=== PATIENT | female | born 1965 | race Caucasian/White ===

== ENCOUNTER 2023-04-12 14:04 | Observation (INO) | payer MEDICAID, SELFPAY ==
[2023-04-12] VITALS (9 sets, daily range): BP systolic 162–196; BP diastolic 73–122; PULSE 70–98; RESP 16–22; TEMP 36.8; O2SAT 91–96; BMI 27.4
--- NOTE | 2023-04-12 14:21 | W.ED.NEUROSD ---
HPI - Neuro Symptoms/Deficit General: Chief Complaint: Neuro Symptoms/Deficit Stated Complaint: stroke like syntoms Time Seen by Provider: 04/12/23 14:21 History of Present Illness: 57-year-old lady with history of tobaccoism presenting to the emergency department for strokelike symptoms. Notes right far visual field cut starting last night associated with intermittent headaches. She also notes sometimes word finding difficulty and mild gait abnormality. She has had abnormal feeling in the right side of her face. Denies similar episodes in the past. Has not seen a doctor for probably 20 years. No other specific changes in health, exacerbating, or alleviating factors identified. Onset (ago): hour(s) Severity: moderate Associated symptoms: Reports other Review of Systems General: Reports: 10 or more systems reviewed and unremarkable except in HPI and below PFSH ED PFSH: Medical History Lacunar infarction Family History Other COPD (chronic obstructive pulmonary disease) Cancer Diabetes Stroke Social History Smoking and tobacco status: former smoker Physical Exam Const: COMMON NORMALS: alert GENERAL APPEARANCE: cooperative and well developed HENMT: COMMON NORMALS: normocephalic and atraumatic HEAD & SCALP: normocephalic and atraumatic Eye: COMMON NORMALS: conjunctivae normal CONJUNCTIVA: Yes conjunctivae normal SCLERA: sclerae normal Neck/C-Spine: COMMON NORMALS: supple GENERAL: Yes trachea midline Resp: COMMON NORMALS: normal respiratory effort EFFORT & INSPECTION: Yes able to speak in complete sentences Cardio: COMMON NORMALS: regular rate and regular rhythm RATE: regular rate RHYTHM: regular rhythm GI: COMMON NORMALS: Soft to palpation PALPATION: Yes Soft to palpation and No Tenderness to palpation present (GI) PERCUSSION: normal to percussion Extremity: GENERAL: Yes normal exam except as noted and No edema Neuro: COMMON NORMALS: moves all extremities SENSORIUM/ORIENTATION: Yes alert and No Orientation impaired OTHER: Unsteady gait, right I visual disturbance with possible mild visual field cut, generalized weakness with mildly worse on the right. Subjective word finding difficulty. Psych: COMMON NORMALS: mental status grossly normal and Normal thought process present THOUGHT PROCESS: Normal thought process present Course Vital Signs: Vital signs: Vital Signs Temperature 98.4 F 04/14/23 11:43 Pulse Rate 96 04/14/23 11:43 Respiratory Rate 18 04/14/23 11:43 Blood Pressure 177/79 04/14/23 11:43 Pulse Oximetry 96 04/14/23 08:16 Oxygen Delivery Me thod Room Air 04/14/23 08:16 MDM - Neuro Symptoms/Deficit Medical Decision Making 57-year-old lady presenting with concern for strokelike symptoms. NIHSS 3. Patient is not a candidate for tPA given duration of symptoms. EKG notable for sinus rhythm with left axis deviation, no STEMI. No significant hematologic or metabolic abnormalities to explain symptoms. No UTI. CT head with no evidence of intracranial hemorrhage. CTA with no large vessel occlusion. Treated during ED course with IV fluids and medication with hypertension above typical acceptable range for permissive hypertension with suspected ischemic stroke. Most likely etiology of symptoms is stroke. The results of ED evaluation were discussed with the patient including plan for admission due to requirement for level of care not available if discharged to prevent significant worsening/deterioration. Patient agreeable with plan. Discussed with hospitalist service who was agreeable to admit patient. Medical Records I reviewed the patient's medical records. Lab Data I reviewed the patient's lab results. 04/12/23 14:40 04/12/23 15:[address] 04/12/23 14:22 IMPRESSION: 1. No acute intracranial hemorrhage or edema. 2. There are a few scattered bilateral dennis-white matter junction areas of decreased attenuation. Recommend nonurgent MRI evaluation. MRI brain with and without contrast recommended. Head/Neck CTA 04/12/23 14:58 IMPRESSION: 1. No significant cervical carotid artery stenosis. 2. Mild atherosclerotic plaque within the intracranial carotid arteries. 3. No cerebral artery occlusion and no aneurysm. 4. Unremarkable [place]. Head MRI 04/13/23 04:29 IMPRESSION: 1. Small area of acute ischemia LEFT lateral thalamus extending into the LEFT mesial temporal lobe. No mass effect or midline shift. 2. No hemosiderin on susceptibly weighted images. 3. Mild small vessel changes with mild parenchymal volume loss. 4. Small amount of fluid in the sphenoid sinus. 5. Tiny chronic lacunar infarcts RIGHT cerebellum and adjacent to the LEFT lateral ventricle. 6. Chronic cortical infarct in the LEFT occipital lobe with encephalomalacia and gliosis. Notified Ramu Levin MD at 04/13/2023 8:53 AM. Laboratory Results WBC 9.7 10^3/uL (4.0-10.0) 04/12/23 14:40 RBC 4.38 10^6/uL (4.1-5.3) 04/12/23 14:40 Hgb 13.5 g/dL (11.5-15.3) 04/12/23 14:40 Hct 41.8 % (37.0-47.0) 04/12/23 14:40 MCV 95.4 fl (81-99) 04/12/23 14:40 MCH 30.8 pg (28.0-34.0) 04/12/23 14:40 MCHC 32.3 g/dL (30.0-36.0) 04/12/23 14:40 RDW 13.1 % (12.1-15.1) 04/12/23 14:40 Plt Count 217 10^3/cmm (130-400) 04/12/23 14:40 MPV 11.5 fL (7.4-10.4) H 04/12/23 14:40 Neut % (Auto) 62.0 % 04/12/23 14:40 Lymph % (Auto) 27.9 % 04/12/23 14:40 [place] % (Auto) 7.4 % 04/12/23 14:40 Eos % (Auto) 2.0 % 04/12/23 14:40 Baso % (Auto) 0.4 % 04/12/23 14:40 Neut # (Auto) 6.01 10^3/uL (1.8-7.7) 04/12/23 14:40 Lymph # (Auto) 2.7 10^3/uL (0.8-4.8) 04/12/23 14:40 [place] # (Auto) 0.7 10^3/uL (0.2-0.9) 04/12/23 14:40 Eos # (Auto) 0.2 10^3/uL (0.0-0.8) 04/12/23 14:40 Baso # (Auto) 0.0 10^3/uL (0.0-0.1) 04/12/23 14:40 Nucleated RBC % (auto) 0 % 04/12/23 14:40 Nucleated RBCs # 0.0 /100WBC 04/12/23 14:40 PT 13.90 SECONDS (12.1-14.9) 04/12/23 14:40 INR 1.04 (0.8-1.2) 04/12/23 14:40 APTT 32.5 SECONDS (23.9-36.7) 04/12/23 14:40 Sodium 140 mmol/L (136-145) 04/12/23 15:23 Potassium 4.5 mmol/L (3.5-5.1) 04/12/23 15:23 Chloride 105 mmol/L (98-107) 04/12/23 15:23 Carbon Dioxide 26 mmol/L (22-29) 04/12/23 15:23 Anion Gap 13.5 (5-19) 04/12/23 15:23 BUN 9 mg/dL (6-20) 04/12/23 15:23 Creatinine 0.7 mg/dL (0.5-0.9) 04/12/23 15:23 GFR Calculation 85.6 mL/min (90-130) L 04/12/23 15:23 Glucose 91 mg/dL (65-115) 04/12/23 15:23 POC Glucose 91 mg/dL (70-110) 04/12/23 14:31 Calculated Osmolality 288 mOsm/kg (285-295) 04/12/23 15:23 Calcium 8.9 mg/dL (8.5-10.5) 04/12/23 15:23 Total Bilirubin 0.2 mg/dL (0.15-1.2) 04/12/23 15:23 AST 13 U/L (0-32) 04/12/23 15:23 ALT 12 U/L (0-33) 04/12/23 15:23 Alkaline Phosphatase 88 U/L (35-105) 04/12/23 15:23 Total Protein 6.4 g/dL (6.6-8.7) L 04/12/23 15:23 Albumin 4.1 g/dL (3.5-5.2) 04/12/23 15:23 Globulin 2.3 g/dL (1.3-4.6) 04/12/23 15:23 Urine Color Yellow (Yellow) 04/12/23 17:26 Urine Appearance Clear (CLEAR) 04/12/23 17:26 Urine pH 7 (5-7) 04/12/23 17:26 Ur Specific [place] 1.010 (1.005-1.030) 04/12/23 17:26 Urine Protein Neg (Negative) 04/12/23 17:26 Urine Glucose (UA) Norm (Normal) 04/12/23 17:26 Urine Ketones Negative (Negative) 04/12/23 17:26 Urine Blood Neg (Negative) 04/12/23 17:26 Urine Nitrate Negative (Negative) 04/12/23 17:26 Urine Bilirubin Neg (Negative) 04/12/23 17:26 Urine Urobilinogen Norm mg/dL (Negative) 04/12/23 17:26 Ur Leukocyte Esterase Negative (Negative) 04/12/23 17:26 Urine Opiates Screen Negative ng/mL (Negative) 04/12/23 17:26 Ur Barbiturates Screen Negative ng/mL (Negative) 04/12/23 17:26 Ur Phencyclidine Scrn Negative ng/mL (Negative) 04/12/23 17:26 Ur Amphetamines Screen Negative ng/mL (Negative) 04/12/23 17:26 U Benzodiazepines Scrn Negative ng/mL (Negative) 04/12/23 17:26 Urine Cocaine Screen Negative ng/mL (Negative) 04/12/23 17:26 U Marijuana (THC) Screen Negative ng/mL (Negative) 04/12/23 17:26 Discharge Plan Discharge Patient Disposition: Placed in Observation Admit Provider: Richard Phipps Clinical Impression: Cerebrovascular accident Discharge Diet: Advance as tolerated and Cardiac Discharge Activity: Resume usual activity Coding Level of Care Code ED Electronic Repair Troubleshooter for López Kelley
--- NOTE | 2023-04-12 14:22 | ECG_ITS ---
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 Measurements Intervals [place] Rate: 79 P: 54 NH: 175 QRS: -28 QRSD: 91 T: 68 QT: 398 QTc: 458 Interpretive Statements SINUS RHYTHM BORDERLINE LEFT AXIS DEVIATION [QRS AXIS < -20] VOLTAGE CRITERIA FOR LVH [MEETS CRITERIA IN ONE OF: R(aVL), S(V1), R(V5), R(V5/V6)+S(V1)] NONSPECIFIC T-WAVE ABNORMALITY No previous ECG available for comparison Electronically Signed On 04-12-2023 23:24:31 CDT by Arely Coats M.D. [id number]
--- NOTE | 2023-04-12 14:22 | CT_ITS ---
WS: [id number] CT HEAD NONCONTRAST HISTORY: Symptoms of acute stroke TECHNIQUE: Contiguous axial imaging performed through the brain in 2.5 mm imaging. Bone and soft tiss ue windows. Sagittal and coronal reformats reviewed. All CT scans at [facility] use at least one of these dose optimization techniques: automated exposure control; mA and/or kV adjustment per pa tient size (includes targeted exams where dose is matched to clinical indication); or iterative recon struction. DLP: 1127.18 mGy-cm. COMPARISON: None available. No acute intracranial hemorrhage, midline shift or mass effect. No significant atrophy. There are a few areas of decreased attenuation scattered throughout the brain which are probably related to small vessel ischemic disease. These areas are at the dennis-white matte r junction and noted bilaterally. Ventricles: Normal size with no hydrocephalus. Mild ectopia of the cerebellar tonsils. Paranasal sinuses: Mild mucoperiosteal disease in the sphenoid sinuses. No air-fluid levels. Mastoid air cells: Well pneumatized. Calvarium and scalp: Skull is intact with no soft tissue edema or swelling. CT/CT head thrombolytic [id number] IMPRESSION: 1. No acute intracranial hemorrhage or edema. 2. There are a few scattered bilateral dennis-white matter junction areas of dec reased attenuation. Recommend nonurgent MRI evaluation. MRI brain with and with out contrast recommended.
[2023-04-12 14:47] LABS: Basophils % 0.4 %; Eosinophils # 0.2 10^3/uL (0.0-0.8); Hematocrit 41.8 % (37.0-47.0); Hemoglobin 13.5 g/dL (11.5-15.3); Lymphocytes # 2.7 10^3/uL (0.8-4.8); Lymphocytes % 27.9 %; Mean Corpuscular HGB Conc 32.3 g/dL (30.0-36.0); Mean Corpuscular Hemoglobin 30.8 pg (28.0-34.0); Mean Corpuscular Volume 95.4 fl (81-99); Mean Platelet Volume 11.5 fL (7.4-10.4); Monocytes # 0.7 10^3/uL (0.2-0.9); Monocytes % 7.4 %; Neutrophils # 6.01 10^3/uL (1.8-7.7); Nucleated Red Blood Cells % 0 %; Platelet Count 217 10^3/cmm (130-400); Red Blood Count 4.38 10^6/uL (4.1-5.3); Red Cell Distribution Width 13.1 % (12.1-15.1); White Blood Count 9.7 10^3/uL (4.0-10.0)
--- NOTE | 2023-04-12 14:58 | CT_ITS ---
WS: [id number] CT ANGIOGRAM CEREBRAL AND CAROTID ARTERIES HISTORY: visual field cut, r facial sensory changes TECHNIQUE: CT angiogram is performed of the carotid and cerebral arteries. During arterial injection imaging is obtained from the skull vertex to the aortic arch in 1.25 mm imaging. Coronal and sagittal reformats are submitted. Additional multi planar reformats of the carotid and cerebral arteries are submitted, MIP imaging also reviewed. NASCET criteria utilized. [facility] at least one of these dose optimization techniques: automated exposure control; mA and/or kV adjust ment per patient size (includes targeted exams where dose is matched to clinical indication); or iter ative reconstruction. CONTRAST: Omnipaque 350; 100 mL IV. DLP: 421.72 mGy.cm COMPARISON: Noncontrast CT head earlier the same day. Carotid Angiogram: Right carotid: Common carotid artery: Arises normally from the innominate artery. No significant plaque or stenosis. Internal carotid artery: No plaque or stenosis. External carotid artery: Patent. Left carotid: Common carotid artery: Arises normally from the aorta. No significant plaque or stenosis. Internal carotid artery: Small amount of plaque and intimal thickening at the bifurcation. External carotid artery: Patent. Right vertebral artery: Small caliber but patent. Left vertebral artery: Arises from the arch. Patent. Subclavian arteries: Tortuous with atherosclerotic plaque. No stenosis. Upper thorax: Normal. Thyroid gland: Normal. Osseous structures: Mild straightening of the normal lumbar lordosis. CEREBRAL ANGIOGRAM: Intracranial vertebral arteries: Normal with no significant atherosclerosis. Basilar artery: No significant stenosis or occlusion. No aneurysm. Intracranial Internal carotid arteries: Mild atherosclerosis at the cavernous sinuses but no occlusio n. Middle cerebral arteries: Normal. Anterior cerebral arteries and ACOM: Normal. Posterior cerebral arteries and PCOM's: Dominant RIGHT posterior communicating artery. Absent or hypo plastic LEFT posterior communicating artery. Posterior cerebral arteries are both patent. Dural venous sinuses are normally enhancing. Mastoid air cells: Normal. Paranasal sinuses: Normal. Calvarium: Normal. Optic disc calcifications noted in the posterior globes. CT/CT angio headneck* [id number] IMPRESSION: 1. No significant cervical carotid artery stenosis. 2. Mild atherosclerotic plaque within the intracranial carotid arteries. 3. No cerebral artery occlusion and no aneurysm. 4. Unremarkable [place].
[2023-04-12 15:02] LABS: INR 1.04 (0.8-1.2)
[2023-04-12 15:03] LABS: Partial Thromboplastin Time 32.5 SECONDS (23.9-36.7)
[2023-04-12 15:57] LABS: Alanine Aminotransferase 12 U/L (0-33); Albumin Level 4.1 g/dL (3.5-5.2); Alkaline Phosphatase 88 U/L (35-105); Aspartate Amino Transferase 13 U/L (0-32); Blood Urea Nitrogen 9 mg/dL (6-20); Calcium 8.9 mg/dL (8.5-10.5); Carbon Dioxide 26 mmol/L (22-29); Chloride 105 mmol/L (98-107); Globulin 2.3 g/dL (1.3-4.6); Glomerular Filtration Rate 85.6 mL/min (90-130); Glucose 91 mg/dL (65-115); Osmolality Calculated 288 mOsm/kg (285-295); Sodium 140 mmol/L (136-145); Total Bilirubin 0.2 mg/dL (0.15-1.2); Total Protein 6.4 g/dL (6.6-8.7)
[2023-04-12 15:59] LABS: Anion Gap 13.5 (5-19); Potassium 4.5 mmol/L (3.5-5.1)
--- NOTE | 2023-04-12 16:05 | PC.PHAR ---
pt states she takes no rx or otc medications
[2023-04-12] MEDS: iohexol 350 mg/mL 500 mL Btl (per mL) IV (16:19)
[2023-04-12 17:30] LABS: Add Urine Microscopic? NO; Charge for UA Resulting for Rev
[2023-04-12 17:31] LABS: Bilirubin Urine Neg (Negative); Blood Urine Neg (Negative); Glucose Urine UA Norm (Normal); Ketones Urine Negative (Negative); Leukocyte Esterase Urine Negative (Negative); Nitrate Urine Negative (Negative); Protein Urine Neg (Negative); Urine Appearance Clear (CLEAR); Urine Color Yellow (Yellow); Urobilinogen Urine Norm (Negative); pH Urine 7 (5-7)
[2023-04-12 17:40] LABS: Amphetamines Screen Urine Negative (Negative); Barbiturates Screen Urine Negative (Negative); Benzodiazepines Screen Urine Negative (Negative); Cocaine Screen Urine Negative (Negative); Opiate Screen Urine Negative (Negative); PCP Screen Urine Negative (Negative); THC Screen Urine Negative (Negative)
--- NOTE | 2023-04-12 18:37 | PM.HP ---
Providers/Chief Complaint Admitting Physician: Richard Phipps DO Primary Care Provider: None Chief Complaint: stroke like syntoms History of Present Illness Alecia Douglas is a 57 year old female who has not been to see a doctor in 19 years and was feeling in her usual state of health until last night, presents with strokelike symptoms. She describes trouble seeing in her periphery right worse than left. She had some sharp stabbing right forehead pains that last for a few seconds and go away. 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 She describes an abnormal feeling on her right side of the face that she feels like it is swollen. The symptoms started last night around 5. She still went to work today and was having trouble and came to the emergency room per the urging of friends and family. In the ER, the CT reports a few scattered bilateral dennis-white matter junction areas of decreased attenuation. The patient also has accelerated hypertension possible malignant hypertension if this is not a stroke. She will be admitted for close observation overnight MRI in the morning. Review of Systems Const: Denies: fever(s) or chills Eyes: Reports: change in vision and blind spots; Denies: seeing flashes ENMT: Denies: throat pain or nasal congestion Card: Denies: chest pain or palpitations Resp: Denies: dyspnea or productive cough GI: Denies: abdominal pain, nausea, vomiting or change in stool character : Denies: dysuria Musc: Denies: back pain or extremity pain Skin/Breast: Denies: rash or lesions Neuro: Denies: headache(s) or dizziness Psych: Denies: anxiety or depression Gael/Lymph: Denies: easy bruising or easy bleeding Medications/Allergies Home Medications Medication Instructions Recorded Confirmed Last Taken Type No Known Home Medications 04/12/23 04/12/23 Unknown History Allergies Allergy/AdvReac Type Severity Reaction Status Date / Time No Known Allergies Allergy Verified 04/12/23 16:05 Vitals/I&O/Wt Last Vital Signs Temp 98.3 F 04/12/23 14:06 Pulse 93 04/12/23 18:14 Resp 22 H 04/12/23 18:14 BP 179/115 04/12/23 18:14 Pulse Ox 91 04/12/23 18:14 O2 Del Method Room Air 04/12/23 18:14 Weight last 48 hrs Weight 72.575 kg Physical Exam Narrative: 57-year-old female who appears slightly older than her stated age due to tobaccoism no acute distress Neurologic: NIH SS score of 2 Psychiatric: Mood and affect are appropriate no hallucinations or delusions HEENT head is normocephalic atraumatic pupils equal round and reactive to light and accommodation extraocular muscles are intact there is no scleral icterus neck is supple no JVD carotid bruits or lymphadenopathy nasal and pharyngeal mucosa is moist and pink Chest: Chest rises symmetrically with inspiration heart is normal S1-S2 without murmurs clicks gallops or rubs Lungs: Minimally diminished breath sounds with a few scattered expiratory wheezes. She does have a prolonged expiratory phase. Abdomen soft nontender nondistended positive bowel sounds no hepatosplenomegaly Extremities no clubbing cyanosis or edema Data 04/12/23 14:40 04/12/23 15:23 CT Head: Radiologist's impression: Head CT? 04/12/23 14:22 IMPRESSION: ? 1.? No acute intracranial hemorrhage or edema. 2.? There are a few scattered bilateral dennis-white matter junction areas of decreased attenuation. Recommend nonurgent MRI evaluation. MRI brain with and without contrast recommended. ? EKG 1: My Interpretation: Sinus rhythm rate of 79. [place] and QRS intervals are normal possible criteria for LVH. Hydration Plant Operator Interpretation: SINUS RHYTHM BORDERLINE LEFT AXIS DEVIATION? [QRS AXIS < -20] VOLTAGE CRITERIA FOR LVH? [MEETS CRITERIA IN ONE OF: R(aVL), S(V1), R(V5), R(V5/V6)+S(V1)] NONSPECIFIC T-WAVE ABNORMALITY A&P Assessment and plan (1) Sensory deficit present: (2) Malignant hypertension: (3) Tobacco abuse: (4) Tobacco abuse counseling: (5) Vision disturbance: Plan Patient with visual and sensory deficit concerning for stroke. NIHSS is 2 with possible abnormality seen on CT however I do not believe these are acute findings. Will admit for observation control of malignant hypertension and MRI to follow-up. Check lipids Check TSH Check hemoglobin A1c PT/OT per stroke protocol Attestations Medical Necessity Statement*: Patient with neurologic manges concern for CVA versus TIA. Patient is placed on observation evaluate for CVA. She also needs treatment of her malignant hypertension. Coding Level of Care Code Acute Code for Chg Fwd Diagnoses Sensory deficit present R44.9 Malignant hypertension I10 Tobacco abuse Z72.0 Tobacco abuse counseling Z71.6 Vision disturbance H53.9
[2023-04-12] MEDS: enoxaparin 40 mg/0.4 mL Syringe SUBCUT (21:20)
[2023-04-12] MEDS: labetalol 5 mg/mL SDV 20mL 10 MG IVP (21:20)
[2023-04-13] VITALS (10 sets, daily range): BP systolic 155–220; BP diastolic 70–82; PULSE 58–69; RESP 16–18; TEMP 36.7–36.8; O2SAT 91–97
--- NOTE | 2023-04-13 04:29 | MR_ITS ---
WS: [id number] MRI HEAD WITHOUT CONTRAST TECHNIQUE: Sagittal T1, T2 axial, T2 axial FLAIR, axial and coronal T1 images, axial susceptibility w eighted imaging, axial diffusion weighted images, and coronal T2 images were obtained. CLINICAL INFORMATION: r/o stroke COMPARISON: None. FINDINGS: Restricted diffusion involving the lateral LEFT thalamus extending into the mesial LEFT temporal lobe compatible with acute ischemia. No other foci of restricted diffusion. Mild small vessel changes. Mi ld parenchymal volume loss. Chronic cortical infarct with encephalomalacia and gliosis involving the LEFT occipital lobe. Normal posterior fossa. Normal vascular flow voids at the skull base. No extra-a xial fluid collections. No evidence of mass or mass effect. Mild mucosal thickening in the ethmoid ai r cells. Mastoid air cells well aerated. No hemosiderin on susceptibly weighted images. Normal optic chiasm and pituitary infundibulum. Secretions within the sphenoid sinus. Tiny chronic la cunar infarct RIGHT cerebellum. Tiny chronic lacunar infarct adjacent to the LEFT lateral ventricle. Normal posterior nasopharynx. Normal parapharyngeal fat. MR/MR head wo con* [id number] IMPRESSION: 1. Small area of acute ischemia LEFT lateral thalamus extending into the LEFT mesial temporal lobe. No mass effect or midline shift. 2. No hemosiderin on susceptibly weighted images. 3. Mild small vessel changes with mild parenchymal volume loss. 4. Small amount of fluid in the sphenoid sinus. 5. Tiny chronic lacunar infarcts RIGHT cerebellum and adjacent to the LEFT lat eral ventricle. 6. Chronic cortical infarct in the LEFT occipital lobe with encephalomalacia a nd gliosis. Notified Ramu Levin MD at 04/13/2023 8:53 AM.
[2023-04-13 05:37] LABS: Chol HDL Ratio 6.55 mg/dL (0.0-4.40); Cholesterol 203 mg/dL (0-200); Estmated Average Glucose 111; HDL Cholesterol 31 mg/dL (60-100); Hemoglobin A1C 5.5 % (4.0-6.0); LDL Cholesterol Calculated 141 mg/dL (50-129); LDL HDL Ratio 4.55 RATIO (0.00-3.22); Triglycerides 157 mg/dL (0-150)
[2023-04-13 05:48] LABS: Thyroid Stimulating Hormone 3.16 uIU/mL (0.27-4.20)
[2023-04-13] MEDS: aspirin 81 mg EC Tablet PO (09:04)
--- NOTE | 2023-04-13 09:46 | PM.PN ---
Subjective Subjective: 57yo F with no known PMHx 2/2 no physician care. Presented to ED with CVA Sx. Seen at bedside this AM with daughter and sister in room. Pt states she is feeling improved from yesterday. still having some visual changes, dizziness and unbalance when walking. some slurring of words and difficulty with thought process. seen by PT this AM. tolerating food and liquids well. Denies CP, palpitations, MORALES MRI head showed: Small area of acute ischemia LEFT lateral thalamus extending into the LEFT mesial temporal lobe. No mass effect or midline shift. Mild small vessel changes with mild parenchymal volume loss.Tiny chronic lacunar infarcts RIGHT cerebellum and adjacent to the LEFT lateral ventricle. Chronic cortical infarct in the LEFT occipital lobe with encephalomalacia and gliosis. Medications: Reviewed: Yes Vitals/I&O/Wt Last Vital Signs Temp 98.0 F 04/13/23 08:00 Pulse 64 04/13/23 08:00 Resp 18 04/13/23 08:00 BP 180/82 04/13/23 08:00 Pulse Ox 97 04/13/23 08:00 O2 Del Method Room Air 04/13/23 08:00 04/12/23 04/13/23 04/13/23 22:59 06:59 14:59 Intake Total 120 / 120 120 / 240 360 / 360 Balance 120 / 120 120 / 240 360 / 360 Weight last 48 hrs Weight 160 lb Physical Exam Narrative: General: AOx3, no acute distress, well developed, well nourished, appears stated age. some slurring of words at times psych: appropriate mood and affect. good judgment and insight. No suicidal or homicidal ideation. Head: atraumatic, normocephalic, no mass/lesions Ears: clear external auditory canals, bilat TM w/o bulging/fluid/discharge. TM with visible landmarks, good light reflex. Hearing intact Eyes: conjunctiva clear w/o exudate or hemorrhage. non-icteric, EOM intact, PERRLA. no signs of nystagmus, during exam pt had dizziness and some difficulties tracking Nose: nasal mucosa pink, septum midline Oropharynx: good dentition Neck: FROM, no lymphadenopathy, Chest: atraumatic, symmetrical CVD: RRR, normal S1 and S2, no M/R/G. 2+ pulse x 4 extremities, no JVD, no carotid bruit. Lungs: distant but clear lung sounds in all danielle, no rhonchi, wheezing, rales. Abdomen: NT, ND, soft, NABS. No hepatosplenomegaly, no mass. umbilicus midline w/o herniation Spine: no visible deformities, FROM, 5/5 strength, Extremities: FROM and 5/5 strength in BUE and BLE. no visible joint abnormalities on active and passive ROM. Neuro: CNII-XII grossly intact. No atrophy, weakness, tremors or clonus.? 2+ DTR, no sensory abnormalities. Skin:? no rash, vesicles, lesions. Data 04/12/23 14:40 04/12/23 15:23 A&P Assessment and plan (1) Cerebrovascular accident (CVA) of left thalamus: Small area of acute ischemia LEFT lateral thalamus extending into the LEFT mesial temporal lobe. No mass effect or midline shift. permissive HTN x 24-48hrs after Sx (5PM on 04/11/23). at this time will start anti-HTN therapy on patient. ASA PRN start lipitor 40mg PT/OT/ST swallow study (2) Vision disturbance: slight improvement pending PT/OT (3) Essential hypertension: permissive hypertension completed will start lisinopril 20mg qd (4) Hyperlipidemia: lipitor 40mg (5) Sensory deficit present: (6) Tobacco abuse: Plan CVA protocol Started on lipitor 40mg qd, ASA Juli 40 no hemorrhagic stroke on MRI PT/OT/ST permissive HTN completed. we are 36hrs out from Sx onset. will start anti-HTN therapy with lisinopril 20mg qd. will re-eval Sx and BP in AM. likely discharge in 24hrs Attestations Medical Necessity Statement*: will require 2 overnight stays for newly diagnosed CVA and HTN Coding Level of Care Code 43072 Diagnoses Cerebrovascular accident (CVA) of left thalamus I63.81 Vision disturbance H53.9 Essential hypertension I10 Hyperlipidemia E78.5 Sensory deficit present R44.9 Tobacco abuse Z72.0
--- NOTE | 2023-04-13 10:24 | PC.CHAP ---
Pastoral Care Encounter/Spiritual Assessment Type of Contact [] Declined motor polarizer visit [] Patient/Family/Request visit [] Outpatient visit [] Follow-up visit [] Physician referral [] Code/Alert [x] Routine visit [] Staff referral [] Actively dying [] Patient sleeping [] Family support [] [] Out of room [] Palliative care [] [x] Receiving care in room [] Pre-surgical visit [] Trauma [] Long length of stay [] ICU visit [] Other: Relational/Emotional Strength [x] Patient feels connected with others/family/visitors/staff [] Distress [] Loneliness/isolation [] Abandonment Spirituality of Patient [x] Person of Rose [] Attends Mormon of their Rose [x] Believes in Prayer [] Reads Bible or Moravian materials [] There are Spiritual issues to be addressed Inspector Government Property Interventions [x] Prayer [x] Active listening [x] Non-anxious presence [x] Spiritual/emotional support [] Crisis/trauma care [x] Spiritual counseling [] Bereavement support [] Provided bereavement packet [] Provided Bible/devotional materials [] Provided toy/stuffed animal, coloring book to patient or family member [] Provided Communion [] Anointing/Joiner [] Salvation [x] Completed spiritual assessment [] Other: Impact on Illness or Injury [] Angry [] Fearful [] Anxious [] Often cries [] Exhaustion [] Unable to work [] Unable to attend rastafari [] Unable to walk/stand [] Unable to read [] Unable to drive [] Unable to eat/drink [] Unable to sleep [] Unable to be with family [] Patient intubated [] Other: Summary senior hip replacement open about rehab +2 they well see what needs to be done at this time Time spent with patient 10 mins
[2023-04-13] MEDS: lisinopril 20 mg Tablet PO (12:07)
[2023-04-13] MEDS: enoxaparin 40 mg/0.4 mL Syringe SUBCUT (18:51)
[2023-04-13] MEDS: amlodipine 5 mg Tablet PO (19:41)
[2023-04-13 20:21] LABS: Glucose Point of Care 91 mg/dL (70-110)
[2023-04-13] MEDS: atorvastatin 40 mg Tablet PO (20:23)
[2023-04-14] VITALS (10 sets, daily range): BP systolic 156–177; BP diastolic 78–85; PULSE 63–96; RESP 16–18; TEMP 36.6–36.9; O2SAT 95–96
[2023-04-14] MEDS: aspirin 81 mg EC Tablet PO (09:32)
[2023-04-14] MEDS: lisinopril 20 mg Tablet PO (09:32)
[2023-04-14] MEDS: amlodipine 5 mg Tablet PO (09:32)
--- NOTE | 2023-04-14 10:29 | P.DS_ITS ---
Discharge Providers Date of Admission: 04/12/23 18:22 Date of Discharge: April 14, 2023 Attending Provider at Admission: Richard Phipps DO Attending Provider at Discharge: Ramu Levin MD Primary Care Provider: none Diagnoses at Discharge Discharge Diagnosis (1) Cerebrovascular accident (CVA) of left thalamus: Status: Acute (2) Vision disturbance: Status: Acute (3) Essential hypertension: Status: Acute (4) Hyperlipidemia: Status: Acute (5) Sensory deficit present: Status: Acute (6) Tobacco abuse: Status: Acute Reason for Visit Reason for Visit: stroke like syntoms Hospital Course Hospital Course 57yo F with no known PMHx 2/2 no physician care. Presented to ED with CVA Sx. Initially came to ED with trouble with peripheral vision in R >L visual field. stabbing sensation in R forehead and trouble pushing buttons. in ED CT negative. Sx began to improve. CVA protocol initiated. MRI on 04/13/23 taken roughly 34hrs after Sx origin showed Small area of acute ischemia LEFT lateral thalamus extending into the LEFT mesial temporal lobe. No mass effect or midline shift. Mild small vessel changes with mild parenchymal volume loss.Tiny chronic lacunar infarcts RIGHT cerebellum and adjacent to the LEFT lateral ventricle. Chronic cortical infarct in the LEFT occipital lobe with encephalomalacia and gliosis. Pt started on atorvastatin. After 36hrs of permissive HTN pt started on lisinopril 20mg qAM and norvasc 5mg qpm. BP showed some improvement. Sx began to improve on 04/14/23. Continued to have some visual field defecits but slurring of words, balance, coordination, and thought processing have all resolved. at time of discharge pt was stable and without worsenign Sx. to be sent home for outpatient PT, sent home on new BP medications and to establish with new PCP. . Physical Exam Narrative: General: AOx3, no acute distress, well developed, well nourished, appears stated age. some slurring of words at times psych: appropriate mood and affect. good judgment and insight. No suicidal or homicidal ideation. Head: atraumatic, normocephalic, no mass/lesions Ears: clear external auditory canals, bilat TM w/o bulging/fluid/discharge. TM with visible landmarks, good light reflex. Hearing intact Eyes: conjunctiva clear w/o exudate or hemorrhage. non-icteric, EOM intact, PERRLA. no signs of nystagmus, during exam pt had dizziness and some difficulties tracking Nose: nasal mucosa pink, septum midline Oropharynx: good dentition Neck: FROM, no lymphadenopathy, Chest: atraumatic, symmetrical CVD: RRR, normal S1 and S2, no M/R/G. 2+ pulse x 4 extremities, no JVD, no carotid bruit. Lungs: distant but clear lung sounds in all danielle, no rhonchi, wheezing, rales. Abdomen: NT, ND, soft, NABS. No hepatosplenomegaly, no mass. umbilicus midline w/o herniation Spine: no visible deformities, FROM, 5/5 strength, Extremities: FROM and 5/5 strength in BUE and BLE. no visible joint abnormalities on active and passive ROM. Neuro: CNII-XII grossly intact. No atrophy, weakness, tremors or clonus.? 2+ DTR, no sensory abnormalities. Skin:? no rash, vesicles, lesions. Discharge Data Studies Completed and Pending Completed Studies During Hospitalization Category Date Time Status CT head thrombolytic [id number] Stat Cat Scan 04/12/23 14:22 Completed CTA head neck [CT angio headneck* [id number]] Stat Cat Scan 04/12/23 14:58 Completed MR head wo con* [id number] Routine MRI 04/13/23 04:29 Completed Radiology Impressions Head CT 04/12/23 14:22 IMPRESSION: 1. No acute intracranial hemorrhage or edema. 2. There are a few scattered bilateral dennis-white matter junction areas of decreased attenuation. Recommend nonurgent MRI evaluation. MRI brain with and without contrast recommended. Head/Neck CTA 04/12/23 14:58 IMPRESSION: 1. No significant cervical carotid artery stenosis. 2. Mild atherosclerotic plaque within the intracranial carotid arteries. 3. No cerebral artery occlusion and no aneurysm. 4. Unremarkable [place]. Head MRI 04/13/23 04:29 IMPRESSION: 1. Small area of acute ischemia LEFT lateral thalamus extending into the LEFT mesial temporal lobe. No mass effect or midline shift. 2. No hemosiderin on susceptibly weighted images. 3. Mild small vessel changes with mild parenchymal volume loss. 4. Small amount of fluid in the sphenoid sinus. 5. Tiny chronic lacunar infarcts RIGHT cerebellum and adjacent to the LEFT lateral ventricle. 6. Chronic cortical infarct in the LEFT occipital lobe with encephalomalacia and gliosis. Notified Ramu Levin MD at 04/13/2023 8:53 AM. Laboratory Results WBC 9.7 10^3/uL (4.0-10.0) 04/12/23 14:40 RBC 4.38 10^6/uL (4.1-5.3) 04/12/23 14:40 Hgb 13.5 g/dL (11.5-15.3) 04/12/23 14:40 Hct 41.8 % (37.0-47.0) 04/12/23 14:40 MCV 95.4 fl (81-99) 04/12/23 14:40 MCH 30.8 pg (28.0-34.0) 04/12/23 14:40 MCHC 32.3 g/dL (30.0-36.0) 04/12/23 14:40 RDW 13.1 % (12.1-15.1) 04/12/23 14:40 Plt Count 217 10^3/cmm (130-400) 04/12/23 14:40 MPV 11.5 fL (7.4-10.4) H 04/12/23 14:40 Neut % (Auto) 62.0 % 04/12/23 14:40 Lymph % (Auto) 27.9 % 04/12/23 14:40 [place] % (Auto) 7.4 % 04/12/23 14:40 Eos % (Auto) 2.0 % 04/12/23 14:40 Baso % (Auto) 0.4 % 04/12/23 14:40 Neut # (Auto) 6.01 10^3/uL (1.8-7.7) 04/12/23 14:40 Lymph # (Auto) 2.7 10^3/uL (0.8-4.8) 04/12/23 14:40 [place] # (Auto) 0.7 10^3/uL (0.2-0.9) 04/12/23 14:40 Eos # (Auto) 0.2 10^3/uL (0.0-0.8) 04/12/23 14:40 Baso # (Auto) 0.0 10^3/uL (0.0-0.1) 04/12/23 14:40 Nucleated RBC % (auto) 0 % 04/12/23 14:40 Nucleated RBCs # 0.0 /100WBC 04/12/23 14:40 PT 13.90 SECONDS (12.1-14.9) 04/12/23 14:40 INR 1.04 (0.8-1.2) 04/12/23 14:40 APTT 32.5 SECONDS (23.9-36.7) 04/12/23 14:40 Sodium 140 mmol/L (136-145) 04/12/23 15:23 Potassium 4.5 mmol/L (3.5-5.1) 04/12/23 15:23 Chloride 105 mmol/L (98-107) 04/12/23 15:23 Carbon Dioxide 26 mmol/L (22-29) 04/12/23 15:23 Anion Gap 13.5 (5-19) 04/12/23 15:23 BUN 9 mg/dL (6-20) 04/12/23 15:23 Creatinine 0.7 mg/dL (0.5-0.9) 04/12/23 15:23 GFR Calculation 85.6 mL/min (90-130) L 04/12/23 15:23 Glucose 91 mg/dL (65-115) 04/12/23 15:23 POC Glucose 91 mg/dL (70-110) 04/12/23 14:31 Estimat Average Glucose 111 04/13/23 04:50 Hemoglobin A1c 5.5 % (4.0-6.0) 04/13/23 04:50 Calculated Osmolality 288 mOsm/kg (285-295) 04/12/23 15:23 Calcium 8.9 mg/dL (8.5-10.5) 04/12/23 15:23 Total Bilirubin 0.2 mg/dL (0.15-1.2) 04/12/23 15:23 AST 13 U/L (0-32) 04/12/23 15:23 ALT 12 U/L (0-33) 04/12/23 15:23 Alkaline Phosphatase 88 U/L (35-105) 04/12/23 15:23 Total Protein 6.4 g/dL (6.6-8.7) L 04/12/23 15:23 Albumin 4.1 g/dL (3.5-5.2) 04/12/23 15:23 Globulin 2.3 g/dL (1.3-4.6) 04/12/23 15:23 Triglycerides 157 mg/dL (0-150) H 04/13/23 04:50 Cholesterol 203 mg/dL (0-200) H 04/13/23 04:50 LDL Cholesterol, Calc 141 mg/dL (50-129) H 04/13/23 04:50 HDL Cholesterol 31 mg/dL (60-100) L 04/13/23 04:50 LDL/HDL Ratio 4.55 RATIO (0.00-3.22) H 04/13/23 04:50 Cholesterol/HDL Ratio 6.55 mg/dL (0.0-4.40) H 04/13/23 04:50 TSH 3.16 uIU/mL (0.27-4.20) 04/13/23 04:50 Urine Color Yellow (Yellow) 04/12/23 17:26 Urine Appearance Clear (CLEAR) 04/12/23 17:26 Urine pH 7 (5-7) 04/12/23 17:26 Ur Specific [place] 1.010 (1.005-1.030) 04/12/23 17:26 Urine Protein Neg (Negative) 04/12/23 17:26 Urine Glucose (UA) Norm (Normal) 04/12/23 17:26 Urine Ketones Negative (Negative) 04/12/23 17:26 Urine Blood Neg (Negative) 04/12/23 17:26 Urine Nitrate Negative (Negative) 04/12/23 17:26 Urine Bilirubin Neg (Negative) 04/12/23 17:26 Urine Urobilinogen Norm mg/dL (Negative) 04/12/23 17:26 Ur Leukocyte Esterase Negative (Negative) 04/12/23 17:26 Urine Opiates Screen Negative ng/mL (Negative) 04/12/23 17:26 Ur Barbiturates Screen Negative ng/mL (Negative) 04/12/23 17:26 Ur Phencyclidine Scrn Negative ng/mL (Negative) 04/12/23 17:26 Ur Amphetamines Screen Negative ng/mL (Negative) 04/12/23 17:26 U Benzodiazepines Scrn Negative ng/mL (Negative) 04/12/23 17:26 Urine Cocaine Screen Negative ng/mL (Negative) 04/12/23 17:26 U Marijuana (THC) Screen Negative ng/mL (Negative) 04/12/23 17:26 Vitals Last Vital Signs Temp 98.4 F 04/14/23 08:16 Pulse 96 04/14/23 08:16 Resp 18 04/14/23 08:16 BP 177/79 04/14/23 08:16 Pulse Ox 96 04/14/23 08:16 O2 Del Method Room Air 04/14/23 08:16 Discharge Plan Discharge Patient Disposition: Home Condition: Stable Prescriptions: New ondansetron HCl 4 mg Tablet 4 mg PO Q8H PRN (Reason: Nausea) Qty: 30 0RF amlodipine 5 mg Tablet 5 mg PO DAILY Qty: 30 0RF aspirin 81 mg Tablet,Delayed Release (Dr/Ec) 81 mg PO DAILY Qty: 30 0RF atorvastatin 40 mg Tablet 40 mg PO 2100 Qty: 30 0RF lisinopril 40 mg tablet 40 mg PO DAILY Qty: 30 0RF No Action No Known Home Medications Discharge Orders: Discharge Order (Routine); Ordered 04/14/23 Ordered By: Ramu Levin Referrals: Norma Harris FNP [Nurse Practitioner] - 04/18/23 4:00 pm Discharge Diet: Advance as tolerated and Cardiac Discharge Activity: Resume usual activity Patient Instructions: Opioid Safety Discharge Attestations Time Spent in Discharge Care*: less than 30 min Quality Metrics Clinical Quality Measures [ No reported AMI, CVA or VTE this stay] Coding Level of Care Code 57159 Diagnoses Cerebrovascular accident (CVA) of left thalamus I63.81 Vision disturbance H53.9 Essential hypertension I10 Hyperlipidemia E78.5 Sensory deficit present R44.9 Tobacco abuse Z72.0
== END 2023-04-14 11:49 | disposition home or self-care (01) ==
LOC: ER 17:18 → MEDSURG 18:23
PROVIDERS: Admitting Provider Internal Medicine; Emergency Provider Emergency Medicine; Visit Provider Family Medicine
DX: I63.81 Other cerebral infarction due to occlusion or stenosis of small artery (principal); H53.8 Other visual disturbances; I10 Essential (primary) hypertension; R29.703 NIHSS score 3; R44.9 Unspecified symptoms and signs involving general sensations and perceptions; E78.5 Hyperlipidemia, unspecified; Z87.891 Personal history of nicotine dependence
CPT/HCPCS: 36415; 36416; 70450; 70496; 70498; 70551; 80053; 80061; 80306; 81003; 82962; 83036; 84443; 85025; 85610; 85730; 93005; 96361; 96372; 96374; 97161; 97165; 99285; G0378; J1650; J3490; Q9967

== ENCOUNTER → 2023-06-19 08:50 | Outpatient (BNVA) | payer MEDICAID, SELFPAY | PROVIDERS: PCP Nurse Practitioner Family; Visit Provider Nurse Practitioner Family | DX: E78.5 Hyperlipidemia, unspecified (principal); I10 Essential (primary) hypertension | CPT/HCPCS: 80053; 80061 ==

== ENCOUNTER 2023-07-01 19:31 | Emergency (ER) | payer MEDICAID, SELFPAY ==
[2023-07-01 19:42] VITALS: BP 143/79; PULSE 92; RESP 18; TEMP 36.8; O2SAT 97; BMI 29.0
[2023-07-01 19:57] LABS: Glucose Point of Care 126 mg/dL (70-110)
--- NOTE | 2023-07-01 20:21 | XRR_ITS ---
PROCEDURE INFORMATION: Exam: XR Chest Exam date and time: 07/01/2023 9:00 PM Age: 57 years old Clinical indication: Other: HTN TECHNIQUE: Imaging protocol: Radiologic exam of the chest. Views: 1 view. COMPARISON: CT angio headneck* [id number] 04/12/2023 3:29 PM FINDINGS: Lungs: Unremarkable. No consolidation. Pleural spaces: Unremarkable. No pleural effusion. No pneumothorax. Heart/Mediastinum: Unremarkable. No cardiomegaly. Bones/joints: Unremarkable. XR/XR chest 1V portable [id number] IMPRESSION: No acute findings.
--- NOTE | 2023-07-01 20:21 | ECG_ITS ---
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 Measurements Intervals [place] Rate: 89 P: 55 HI: 166 QRS: -5 QRSD: 96 T: 90 QT: 364 QTc: 443 Interpretive Statements SINUS RHYTHM NONSPECIFIC T-WAVE ABNORMALITY Compared to ECG 04/12/2023 14:33:03 Left ventricular hypertrophy no longer present T-wave abnormality still present Electronically Signed On 07-02-2023 6:02:31 CDT by Olivia Kenyon M.D. [email or web address]
[2023-07-01 20:43] LABS: Basophils % 0.2 %; Eosinophils # 0.3 10^3/uL (0.0-0.8); Eosinophils % 2.5 %; Hematocrit 43.8 % (36-47); Lymphocytes # 1.8 10^3/uL (0.8-4.8); Lymphocytes % 14.4 %; Mean Corpuscular Hemoglobin 30.9 pg (27-33); Mean Corpuscular Volume 96.7 fl (85-98); Mean Platelet Volume 11.1 fL (7.4-10.4); Monocytes # 0.6 10^3/uL (0.2-0.9); Monocytes % 4.9 %; Neutrophils # 9.53 10^3/uL (1.8-7.7); Neutrophils % 77.6 %; Nucleated Red Blood Cells % 0 %; Platelet Count 287 10^3/cmm (157-399); Red Blood Count 4.53 10^6/uL (3.85-5.65); White Blood Count 12.29 10^3/uL (3.29-11.43)
[2023-07-01 21:01] LABS: INR 0.99 (0.8-1.2)
[2023-07-01 21:08] LABS: Alanine Aminotransferase 22 U/L (0-33); Albumin Level 4.3 g/dL (3.5-5.2); Alkaline Phosphatase 116 U/L (35-105); Anion Gap 12.2 (5-19); Aspartate Amino Transferase 14 U/L (0-32); Blood Urea Nitrogen 16 mg/dL (6-20); Calcium 9.1 mg/dL (8.5-10.5); Carbon Dioxide 28 mmol/L (22-29); Chloride 102 mmol/L (98-107); Globulin 3.2 g/dL (1.3-4.6); Glomerular Filtration Rate 85.6 mL/min (90-130); Glucose 109 mg/dL (65-115); Magnesium 2.2 mg/dL (1.7-2.3); Osmolality Calculated 288 mOsm/kg (285-295); Potassium 4.2 mmol/L (3.5-5.1); Sodium 138 mmol/L (136-145); Thyroid Stimulating Hormone 1.92 uIU/mL (0.27-4.20); Total Bilirubin 0.4 mg/dL (0.15-1.2); Total Protein 7.5 g/dL (6.6-8.7)
[2023-07-01 21:46] LABS: Protein Urine Neg (Negative); Specific Gravity, Urine 1.025 (1.005-1.030); Urine Appearance Hazy (CLEAR); Urine Color Yellow (Yellow); pH Urine 5 (5-7)
[2023-07-01 21:47] LABS: Add Urine Microscopic? YES; Bilirubin Urine Neg (Negative); Blood Urine 2+ (Negative); Glucose Urine UA Norm (Normal); Ketones Urine 1+ (Negative); Leukocyte Esterase Urine 2+ (Negative); Nitrate Urine Negative (Negative); Urobilinogen Urine 1 mg/dL (Negative)
[2023-07-01 21:57] LABS: Add Urine Culture? No; Amorphous Sediment Urine 1+ /hpf; Bacteria Urine TRACE /hpf; Mucus Urine 4+ /hpf; RBC Urine 0-4 /hpf (0-2)
--- NOTE | 2023-07-01 22:28 | CTR_ITS ---
PROCEDURE INFORMATION: Exam: CT Head Without Contrast Exam date and time: 07/01/2023 10:36 PM Age: 57 years old Clinical indication: Pain; Altered mental status/memory loss; Headache; Patient HX: C/O MORALES with weakness. Recent memory issues with remembering names and spelling own name. History of recent CVA. ; Additional info: Weakness, headache, confusion TECHNIQUE: Imaging protocol: Computed tomography of the head without contrast. Radiation optimization: All CT scans at this facility use at least one of these dose optimization techniques: automated exposure control; mA and/or kV adjustment per patient size (includes targeted exams where dose is matched to clinical indication); or iterative reconstruction. REPORTING DATA: Count of CT and Cardiac NM exams in prior 12 months: This patient has received 2 known CTs and 0 known cardiac nuclear medicine studies in the 12 months prior to the current study. COMPARISON: MR head wo con* [id number] 04/13/2023 8:04 AM RADIATION DOSE METRICS: Total DLP (mGy-cm): 1033.2 FINDINGS: Brain: Mild diffuse white matter disease likely reflecting chronic microvascular ischemic changes. Cerebral ventricles: No ventriculomegaly. Paranasal sinuses: Visualized sinuses are unremarkable. No fluid levels. Mastoid air cells: Visualized mastoid air cells are well aerated. Bones/joints: Unremarkable. No acute fracture. Soft tissues: Unremarkable. CT/CT head wo con* [id number] IMPRESSION: 1. Negative for intracranial hemorrhage or mass effect. 2. Mild diffuse white matter disease likely reflecting chronic microvascular ischemic changes.
[2023-07-01 23:13] VITALS: BP 128/70; PULSE 90; RESP 16; O2SAT 95
[2023-07-01] MEDS: cefTRIAXone 1,000 MG in sodium chloride 0.9% (plus) 50 ML 100 MG IV (23:14)
[2023-07-02] VITALS: BP 107/65; PULSE 89; RESP 16; O2SAT 96
--- NOTE | 2023-07-02 00:06 | W.ED.NEUROSD ---
HPI - Neuro Symptoms/Deficit General: Chief Complaint: Neuro Symptoms/Deficit Stated Complaint: Blood Pressure going up and Down Time Seen by Provider: 07/01/23 22:25 Source: patient and family History of Present Illness: 57-year-old female with a history of acute CVA back in April. She presents with bilateral leg weakness, some trouble finding her words, mild confusion otherwise. Her stroke symptoms otherwise from previous are essentially at baseline. Symptoms have been present since yesterday or may be a little bit before. No fever. No vomiting. No other focal symptoms. She does note that her blood pressure seems to be going up and down somewhat dramatically. Associated symptoms: Reports headache(s); Deny chest pain, nausea or vomiting Review of Systems Const: Denies: fever(s), chills or body aches Eyes: Denies: change in vision Card: Denies: chest pain or palpitations Resp: Denies: dyspnea, productive cough, non-productive cough or wheezing GI: Denies: abdominal pain, nausea, vomiting, diarrhea or hematochezia : Denies: difficulty voiding Skin/Breast: Denies: rash Neuro: Reports: headache(s), weakness in extremities (bilateral LE), dizziness and confusion PFSH ED PFSH: Medical History Lacunar infarction Family History Other COPD (chronic obstructive pulmonary disease) Cancer Diabetes Stroke Social History Smoking and tobacco/nicotine status: former use of tobacco/nicotine NIH stroke score NIHSS: Level Of Consciousness - 1a: 0 Level Of Consciousness Questions - 1b: Both Correct Level Of Consciousness Commands - 1c: Both Correct Best Gaze - 2: Normal Visual Blount - 3: Partial Hemianopia Facial Palsy - 4: Normal Motor Arm Right - 5: No Drift Motor Arm Left - 5: No Drift Motor Leg Right - 6: No Drift Motor Leg Left - 6: No Drift Limb Ataxia - 7: Absent Sensory - 8: Normal Best Language - 9: No Aphasia Dysarthia - 10: Normal Extinction And Inattention - 11: 0 Score: Total Score: 1 Physical Exam Const: COMMON NORMALS: no acute distress GENERAL APPEARANCE: cooperative; not ill appearing and not frail appearing HENMT: COMMON NORMALS: normocephalic, atraumatic and Normal external nose present HEAD & SCALP: normocephalic and atraumatic FACE & SINUS: normal facial exam and face symmetric NOSE: Normal external nose present Eye: COMMON NORMALS: Equal, round and reactive pupils present and EOMs intact bilaterally PUPIL: Yes Equal, round and reactive pupils present Neck/C-Spine: GENERAL: Yes trachea midline Chest: CHEST: Yes Symmetrical chest wall rise Resp: COMMON NORMALS: normal respiratory effort, No retractions, No use of accessory muscles and clear to auscultation bilaterally AUSCULTATION: clear to auscultation bilaterally Cardio: COMMON NORMALS: regular rate and regular rhythm RATE: regular rate RHYTHM: regular rhythm GI: COMMON NORMALS: Normal to inspection, nondistended, normoactive bowel sounds present Extremity: COMMON NORMALS: no pedal edema Neuro: BERNARD COMA SCALE: document GCS findings Angelica coma scale eye opening: Spontaneous Bernard coma scale verbal response: Orientated Bernard coma scale motor response: Obey commands Bernard coma scale total score: 15 SENSORY EXAM: Yes extremities (intact) Psych: COMMON NORMALS: speech normal SPEECH: Yes normal speech Skin: COMMON NORMALS: no rashes or lesions noted GENERAL SKIN EXAM: no rashes or lesions noted Course Vital Signs: Vital signs: Vital Signs Temperature 98.3 F 07/01/23 19:42 Pulse Rate 89 07/02/23 00:00 Respiratory Rate 16 07/02/23 00:00 Blood Pressure 107/65 07/02/23 00:00 Pulse Oximetry 96 07/02/23 00:00 Oxygen Delivery Me thod Room Air 07/01/23 19:42 MDM - Neuro Symptoms/Deficit Medical Decision Making 57-year-old lady with history of generalized weakness, mainly to the lower extremities, some mild confusion it seems. Vitals are stable. NIH score is 1 owing to chronic vision loss associated with her prior stroke. White blood cell count is 12.3. BMP is normal. CBC is otherwise not remarkable. Urinalysis shows 2+ leukocyte Estrace, 10-15 whites. Laboratory is otherwise negative. Head CT shows no acute changes. Chest x-ray is normal. Patient will be allowed home. She received IV Rocephin here. Antibiotics for UTI, monitoring at home to see if it improves her generalized nonfocal symptoms. She will return for any worsening symptoms in the meantime. Close outpatient follow-up. Lab Data 07/01/23 20:33 07/01/23 20:33 Radiology Impressions Chest X-Ray 07/01/23 20: IMPRESSION: No acute findings. Head CT 07/01/23 22:28 IMPRESSION: 1. Negative for intracranial hemorrhage or mass effect. 2. Mild diffuse white matter disease likely reflecting chronic microvascular ischemic changes. Laboratory Results WBC 12.29 10^3/uL (3.29-11.43) H 07/01/23 20: RBC 4.53 10^6/uL (3.85-5.65) 07/01/23 20: Hgb 14.00 g/dL (11.27-16.99) 07/01/23 20: Hct 43.8 % (36-47) 07/01/23 20: MCV 96.7 fl (85-98) 07/01/23 20: MCH 30.9 pg (27-33) 07/01/23: MCHC 32.0 g/dL (30-55) 07/01/23 20: RDW 13.0 % (12.1-15.1) 07/01/23 20: Plt Count 287 10^3/cmm (157-399) 07/01/23 20: MPV 11.1 fL (7.4-10.4) H 07/01/23 20:33 Neut % (Auto) 77.6 % 07/01/23 20: Lymph % (Auto) 14.4 % 07/01/23 20: [place] % (Auto) 4.9 % 07/01/23 20: Eos % (Auto) 2.5 % 07/01/23 20: Baso % (Auto) 0.2 % 07/01/23 20: Neut # (Auto) 9.53 10^3/uL (1.8-7.7) H 07/01/23 20: Lymph # (Auto) 1.8 10^3/uL (0.8-4.8) 07/01/23 20: [place] # (Auto) 0.6 10^3/uL (0.2-0.9) 07/01/23 20: Eos # (Auto) 0.3 10^3/uL (0.0-0.8) 07/01/23 20:33 Baso # (Auto) 0.0 10^3/uL (0.0-0.1) 07/01/23 20:33 Nucleated RBC % (auto) 0 % 07/01/23 20:33 Nucleated RBCs # 0.0 /100WBC 07/01/23 20:33 PT 13.40 SECONDS (12.1-14.9) 07/01/23 20:33 INR 0.99 (0.8-1.2) 07/01/23 20:33 Sodium 138 mmol/L (136-145) 07/01/23 20:33 Potassium 4.2 mmol/L (3.5-5.1) 07/01/23 20:33 Chloride 102 mmol/L (98-107) 07/01/23 20:33 Carbon Dioxide 28 mmol/L (22-29) 07/01/23 20:33 Anion Gap 12.2 (5-19) 07/01/23 20:33 BUN 16 mg/dL (6-20) 07/01/23 20:33 Creatinine 0.7 mg/dL (0.5-0.9) 07/01/23 20:33 GFR Calculation 85.6 mL/min (90-130) L 07/01/23 20:33 Glucose 109 mg/dL (65-115) 07/01/23 20:33 POC Glucose 126 mg/dL (70-110) H 07/01/23 19:53 Calculated Osmolality 288 mOsm/kg (285-295) 07/01/23 20:33 Calcium 9.1 mg/dL (8.5-10.5) 07/01/23 20:33 Magnesium 2.2 mg/dL (1.7-2.3) 07/01/23 20:33 Total Bilirubin 0.4 mg/dL (0.15-1.2) 07/01/23 20:33 AST 14 U/L (0-32) 07/01/23 20:33 ALT 22 U/L (0-33) 07/01/23 20:33 Alkaline Phosphatase 116 U/L (35-105) H 07/01/23 20:33 Total Protein 7.5 g/dL (6.6-8.7) 07/01/23 20:33 Albumin 4.3 g/dL (3.5-5.2) 07/01/23 20:33 Globulin 3.2 g/dL (1.3-4.6) 07/01/23 20:33 TSH 1.92 uIU/mL (0.27-4.20) 07/01/23 20:33 Urine Color Yellow (Yellow) 07/01/23 21:34 Urine Appearance Hazy (CLEAR) A 07/01/23 21:34 Urine pH 5 (5-7) 07/01/23 21:34 Ur Specific [place] 1.025 (1.005-1.030) 07/01/23 21:34 Urine Protein Neg (Negative) 07/01/23 21:34 Urine Glucose (UA) Norm (Normal) 07/01/23 21:34 Urine Ketones 1+ (Negative) H 07/01/23 21:34 Urine Blood 2+ (Negative) H 07/01/23 21:34 Urine Nitrate Negative (Negative) 07/01/23 21:34 Urine Bilirubin Neg (Negative) 07/01/23 21:34 Urine Urobilinogen 1 mg/dL (Negative) H 07/01/23 21:34 Ur Leukocyte Esterase 2+ (Negative) H 07/01/23 21:34 Urine RBC 0-4 /hpf (0-2) H 07/01/23 21:34 Urine WBC 10-15 /hpf (0-5) H 07/01/23 21:34 Ur Squamous Epith Cells 5-10 /hpf (0-5) H 07/01/23 21:34 Amorphous Sediment 1+ /hpf 07/01/23 21:34 Urine Bacteria Trace /hpf (NONE) 07/01/23 21:34 Urine Mucus 4+ /hpf 07/01/23 21:34 All radiology interpretation(s) finalized by discharge Discharge Plan Discharge Patient Disposition: Home Clinical Impression: Urinary tract infection Condition: Stable Prescriptions: New cefdinir 300 mg capsule 300 mg PO BID Qty: 14 0RF No Action atorvastatin 40 mg tablet 40 mg PO 2100 Qty: 90 1RF amlodipine 10 mg tablet See Rx Instructions .ROUTE .COMPLEX Qty: 90 1RF Dose Instruction: Take 1 tablet by mouth once daily Rx Instructions: Take 1 tablet by mouth once daily lisinopril 40 mg tablet 40 mg PO DAILY Qty: 90 1RF aspirin 81 mg Tablet,Delayed Release (/Ec) 81 mg PO DAILY Qty: 30 0RF ondansetron HCl 4 mg Tablet 4 mg PO Q8H PRN (Reason: Nausea) Qty: 30 0RF Discharge Orders: Discharge ED (Routine); Ordered 07/02/23 Ordered By: Ponce Al Referrals: Norma Harris FNP [Primary Care Provider] - 1-3 days Patient Instructions: Urinary Tract Infection in Women (ED) Activity Restrictions/Additional Instructions: Monitor temperatures. Monitor your blood pressure. Return for worsening symptoms despite treatment. Antibiotics as directed. Follow-up with your doctor this week. Coding Level of Care Code ED Lawn Mower for López Kelley
== END 2023-07-02 00:19 | disposition home or self-care (01) ==
PROVIDERS: Emergency Medicine; Emergency Provider Emergency Medicine; PCP Nurse Practitioner Family
DX: N39.0 Urinary tract infection, site not specified (principal); R53.1 Weakness
CPT/HCPCS: 36415; 36416; 70450; 71045; 80053; 81001; 82962; 83735; 84443; 85025; 85610; 93005; 99285; J0696

== ENCOUNTER → 2023-07-12 10:28 | Outpatient (BNVA) | payer MEDICAID, SELFPAY | PROVIDERS: PCP Nurse Practitioner Family; Visit Provider Psychiatry & Neurology Neurology | DX: E78.5 Hyperlipidemia, unspecified (principal); I63.81 Other cerebral infarction due to occlusion or stenosis of small artery; I10 Essential (primary) hypertension | CPT/HCPCS: 83090; 85210; 85300; 85303; 85306; 85613; 85730; 86146; 86147 ==

== ENCOUNTER 2023-08-16 08:47 | Oncology outpatient (recurring) (ONCR) | payer MEDICAID, SELFPAY | END 2023-09-10 23:59 | disposition home or self-care (01) | PROVIDERS: PCP Nurse Practitioner Family; Visit Provider Nurse Practitioner Family | DX: I63.81 Other cerebral infarction due to occlusion or stenosis of small artery (principal); D68.59 Other primary thrombophilia; I10 Essential (primary) hypertension; Z79.899 Other long term (current) drug therapy | CPT/HCPCS: 81241; 85025; 85610 ==

== ENCOUNTER 2023-08-31 10:37 | Outpatient (CLI) | payer MEDICAID, SELFPAY ==
--- NOTE | 2023-08-31 10:41 | MM_ITS ---
WS: [id number] SCREENING DIGITAL TOMOSYNTHESIS MAMMOGRAM WITH CAD HISTORY: initial screening COMPARISON: None available. Bilateral CC and MLO with tomosynthesis views submitted. Synthetic mammography reviewed. Computer aid ed detection analyzed. Breast composition: The breasts are almost entirely fatty. No suspicious masses, microcalcifications or architectural distortion. IMPRESSION: MM/[place] [id number] BI-RADS: 1-Negative FOLLOW UP: 1 Year Follow-up
== END 2023-08-31 10:38 | disposition home or self-care (01) ==
LOC: RAD 10:38
PROVIDERS: PCP Nurse Practitioner Family; Visit Provider Internal Medicine Hematology & Oncology
DX: Z12.31 Encounter for screening mammogram for malignant neoplasm of breast (principal)
CPT/HCPCS: 77063; 77067

== ENCOUNTER 2023-09-19 08:58 | Oncology outpatient (recurring) (ONCR) | payer MEDICAID, SELFPAY ==
[2023-09-19 10:59] LABS: Basophils # 0.1 10^3/uL (0.0-0.1); Basophils % 0.5 %; Eosinophils # 0.3 10^3/uL (0.0-0.8); Eosinophils % 2.9 %; Hematocrit 42.7 % (36-47); Lymphocytes # 2.6 10^3/uL (0.8-4.8); Lymphocytes % 24.1 %; Mean Corpuscular Hemoglobin 32.3 pg (27-33); Mean Corpuscular Volume 97.7 fl (85-98); Mean Platelet Volume 10.9 fL (7.4-10.4); Monocytes # 0.4 10^3/uL (0.2-0.9); Neutrophils # 7.41 10^3/uL (1.8-7.7); Neutrophils % 67.9 %; Nucleated Red Blood Cells % 0 %; Platelet Count 322 10^3/cmm (157-399); Red Blood Count 4.37 10^6/uL (3.85-5.65); Red Cell Distribution Width 12.5 % (12.1-15.1); White Blood Count 10.92 10^3/uL (3.29-11.43)
[2023-09-19 11:14] LABS: INR 1.04 (0.8-1.2)
== END 2023-10-11 23:59 | disposition home or self-care (01) ==
PROVIDERS: Nurse Practitioner Family; PCP Nurse Practitioner Family; Visit Provider Nurse Practitioner Family
DX: I63.81 Other cerebral infarction due to occlusion or stenosis of small artery (principal); D68.59 Other primary thrombophilia; I10 Essential (primary) hypertension; Z79.899 Other long term (current) drug therapy
CPT/HCPCS: 36415; 85025; 85610

== ENCOUNTER 2023-10-04 08:22 | Outpatient (CLI) | payer MEDICAID, SELFPAY ==
--- NOTE | 2023-10-04 08:45 | MR_ITS ---
WS: [id number] MRI BRAIN WITH AND WITHOUT CONTRAST HISTORY: stroke-like symptoms COMPARISON: 04/13/2023 TECHNIQUE: Multiplanar imaging performed through the brain with MultiHance 17 ml's IV. No acute infarcts are seen. Pantoja-white matter differentiation is well preserved. Mild parenchymal vol ume loss and small vessel ischemic disease. Reidentified is a chronic infarct with encephalomalacia a nd gliosis involving the LEFT occipital lobe. No susceptibility infarction or hemorrhage. Ventricles and extra-axial spaces are normal. Clivus and pituitary gland are normal. Visualized posterior fossa and brainstem are also normal. Previously described tiny RIGHT cerebellar infarct is not visualized today. Postcontrast images are negative for masses or vascular malformations. Dural venous sinuses are normal. Paranasal sinuses: No air-fluid levels. Mild mucoperiosteal thickening in the ethmoid and maxillary s inuses. Mastoid air cells: Normal. Calvarium and scalp: Normal. IMPRESSION: 1. No acute infarct or hemorrhage. 2. Stable remote LEFT occipital lobe infarct with gliosis. 3. Mild volume loss and small vessel ischemic disease is stable. 4. No enhancing mass.
[2023-10-04] MEDS: gadobenate dimeglumine 20 mL vial IV (09:35)
== END 2023-10-04 08:23 | disposition home or self-care (01) ==
LOC: RAD 08:23
PROVIDERS: PCP Nurse Practitioner Family; Visit Provider Nurse Practitioner Family
DX: I63.81 Other cerebral infarction due to occlusion or stenosis of small artery (principal); R29.90 Unspecified symptoms and signs involving the nervous system; D68.59 Other primary thrombophilia; Z86.73 Personal history of transient ischemic attack (TIA), and cerebral infarction without residual deficits; G93.89 Other specified disorders of brain; I67.89 Other cerebrovascular disease
CPT/HCPCS: 70553; A9577

== ENCOUNTER 2023-10-16 15:03 | Outpatient (CLI) | payer MEDICAID, SELFPAY ==
--- NOTE | 2023-10-16 15:09 | USCV_ITS ---
Alecia Douglas Age: 57 Gender: F : 1965 Exam Date: 10/16/2023 15:42 Ordering Phys: Cali Russell MD Technologist: Estefani Blair [place] [facility] [place]: SEVERAL CVAs BP: / HR: 69 Rhythm: Sinus Technical Quality: Adequate MEASUREMENTS (Male / Female) Normal Values 2D ECHO LV Diastolic Diameter PLAX 4.1 cm 4.2 - 5.9 / 3.9 - 5.3 cm LV Systolic Diameter PLAX 2.3 cm LV Chamber Size 1.9 cm IVS Diastolic Thickness 0.6 cm 0.6 - 1.0 / 0.6 - 0.9 cm IVS Systolic Thickness 1.1 cm LVPW Diastolic Thickness 1.3 cm 0.6 - 1.0 / 0.6 - 0.9 cm LVPW Systolic Thickness 1.7 cm RV Chamber Size 1.7 cm LVOT Diameter 2.0 cm LV Ejection Fraction 2D Teich 76.7 % LV Ejection Fraction MOD 2C 72.1 % LV Ejection Fraction 2C AL 74.8 % LA Diameter 3.1 cm LA Width 2.0 cm LA Height 3.1 cm RA Width 2.5 cm RA Height 3.0 cm Aorta at Sinotubular Diameter 2.6 cm IVC Diameter 1.7 cm M-MODE Aortic Annulus Diameter 3.6 cm LA Ao Ratio MM 0.9 MV E Point Septal Separation 0.4 cm DOPPLER TR Peak Velocity 222.0 cm/s TR Peak Gradient 19.7 mmHg FINDINGS Left Ventricle LV systolic function is normal with EF 55 to 60%. No regional wall motion abnormalities are seen. Right Ventricle Grossly normal. Right Atrium Normal in size. Left Atrium Normal in size Mitral Valve Grossly normal. Aortic Valve Grossly normal. Tricuspid Valve Not well-visualized. Pulmonic Valve Not well-visualized. Pericardium Normal Aorta Normal size IVC Appears to be normal CONCLUSIONS This is a limited echocardiogram performed to assess intracardiac shunting. LV systolic function is normal. Bubble study is limited as bubble contrast already seen completely opacifying the right ventricle at beginning of images. Bubbles are seen to cross over to left side however cannot assess what beat they cross after opacification of RV. Interatrial septum appears aneurysmal as well. Possible intracardiac shunt Temo Acosta MD (Electronically Signed) Final Date: 22 October 2023 21:07 S
== END 2023-10-16 15:04 | disposition home or self-care (01) ==
LOC: RAD 15:03
PROVIDERS: PCP Nurse Practitioner Family; Visit Provider Psychiatry & Neurology Neurology
DX: I63.81 Other cerebral infarction due to occlusion or stenosis of small artery (principal)
CPT/HCPCS: C8924

== ENCOUNTER 2023-12-08 10:51 | Day surgery (SDC) | payer MEDICAID, SELFPAY ==
--- NOTE | 2023-12-08 11:01 | USCV_ITS ---
Alecia Douglas Age: 58 Gender: F : 1965 Exam Date: 12/08/2023 12:44 Ordering Phys: Arely Coats MD ([email or web address]) Technologist: Exam Location: [facility] – [place] Indication: ASD BP: 146 / 71 HR: 74 Rhythm: Sinus Technical Quality: Adequate MEASUREMENTS (Male / Female) Normal Values 2D ECHO LVOT Diameter 2.0 cm DOPPLER LVOT Peak Velocity 93.0 cm/s PV Peak Velocity 101.0 cm/s Medications IV propofol administered with anesthesia service. Please refer to anesthesia report for details. Complications Other Complications. Proc. Components The patient was brought to the HALEY examination room in a fasting state after obtaining an informed consent. The HALEY probe was passed into the posterior pharynx , mid-esophagus, distal esophagus, and gastric fundus. HALEY was performed at multiple levels. The patient tolerated the procedure well and there were no complications. FINDINGS Left Ventricle Appears to be of normal size ejection fraction Right Ventricle Appears to be of normal size and ejection fraction Right Atrium Possibly of normal size and no intracavitary masses Left Atrium Mildly dilated left atrium LA Appendage Normal contractility with no evidence of any thrombus IA Septum There is minimal bulging of the interatrial septum to the right. No septal aneurysm is noted. Few saline bubbles were noted entering the left atrium with abdominal compression. The size of the PFO measured 2.0 mm Mitral Valve No gross abnormalities noted Aortic Valve Tricuspid valve with no significant normalities Tricuspid Valve No gross abnormalities noted Pulmonic Valve No gross abnormalities Pericardium No pericardial effusion. Aorta Mild to moderate diffuse plaques in the arch and the descending part of the aorta CONCLUSIONS 1. Small patent foramen ovale of 2 mm size, with a few bubbles crossing the septum during abdominal compression. 2. No atrial septal aneurysm. 3. No intracardiac masses or thrombi 4. No significant valvular abnormalities 5. Mildly dilated left atrium 6. Mild to moderate diffuse plaque in the arch and descending aorta 7. Normal LV size and ejection fraction. 8. No evidence of aneurysm or dissection in the ascending/arch of the aorta. Dr Arely Coats MD [facility] (Electronically Signed) Final Date: 08 December 2023 16:58 S
[2023-12-08 11:08] VITALS: BP 132/63; PULSE 741; RESP 16; TEMP 37.3; O2SAT 96; BMI 29.2
[2023-12-08] MEDS: sodium chloride 0.9% 1,000 ML 30 ML IV (11:22)
--- NOTE | 2023-12-08 12:32 | W.PM.OPSUD ---
Surgery/Procedure H&P Update DATE OF PROCEDURE: December 08, 2023 DATE H&P PERFORMED: 11/15/23 H&P UPDATE INFORMATION: I have reviewed H&P completed within last 30 days, I have examined patient prior to procedure and No changes to prior documentation PREOP DIAGNOSIS: CVA, possible intra cardiac shunt PRIMARY INDICATION FOR PROCEDURE: possible intracardiac shunt, S/P CVA PLANNED PROCEDURE: Operation Date: 12/08/23 12:00 Proposed Procedures p HALEY(Not Applicable) - Arely Coats MD
[2023-12-08 13:06] VITALS: BP 100/53; PULSE 65; RESP 18; TEMP 36.2; O2SAT 98
[2023-12-08 13:11] VITALS: BP 112/70; PULSE 66; RESP 18; O2SAT 97
[2023-12-08 13:16] VITALS: BP 110/48; PULSE 63; RESP 18; O2SAT 97
[2023-12-08 13:21] VITALS: BP 125/68; BP 139/71; PULSE 60; PULSE 61; RESP 16; RESP 18; TEMP 36.1; TEMP 36.8; O2SAT 97; O2SAT 98
[2023-12-08 13:41] VITALS: BP 150/81; PULSE 64; RESP 18; O2SAT 96
== END 2023-12-08 13:53 | disposition home or self-care (01) ==
PROVIDERS: PCP Nurse Practitioner Family; Visit Provider Internal Medicine Cardiovascular Disease
PROC: (CPT 93312; principal; 2023-12-08 12:00)
DX: Q21.10 Atrial septal defect, unspecified (principal)
CPT/HCPCS: 93312; 93320; 93325; J2704; J7030

== ENCOUNTER 2024-06-01 15:46 | Emergency (ER) | payer MEDICAID, SELFPAY ==
[2024-06-01 15:53] VITALS: BP 131/84; PULSE 112; RESP 20; TEMP 36.8; O2SAT 98
--- NOTE | 2024-06-01 16:05 | XRR_ITS ---
PROCEDURE INFORMATION: Exam: XR Left Shoulder Exam date and time: 06/01/2024 4:14 PM Age: 58 years old Clinical indication: Left; Patient HX: Lt shoulder pain post fall TECHNIQUE: Imaging protocol: Radiologic exam of the left shoulder. Views: 2 or more views. COMPARISON: CT angio headrickck* [id number] 09/18/2023 8:37 PM FINDINGS: Bones/joints: Acute displaced proximal humeral fracture involving the greater tuberosity. Questionable nondisplaced fracture line through the surgical neck, evaluation of which with CT may be helpful. Subtle osseous irregularity of the inferior glenoid raising the question of a nondisplaced fracture. The glenohumeral articulation is reduced. The acromioclavicular articulation is grossly intact. Soft tissues: No gross soft tissue abnormality. XR/XR shoulder LT min 2V* [id number] IMPRESSION: 1. Acute displaced greater tuberosity fracture. Consider correlation with CT for further detail.
--- NOTE | 2024-06-01 16:36 | ED_ITS ---
HPI - Extremity Injury (Upper) General: Chief Complaint: Extremity Injury, Upper Stated Complaint: fall--left shoulder injury Time Seen by Provider: 06/01/24 16:27 Source: patient and family Mode of arrival: ambulatory Limitations: no limitations History of Present Illness: Patient is a nice 58-year-old female presents to ED today along with family members for evaluation of her right shoulder. Patient states she has had previous strokes and states her balance is chronically off because of this. Patient states prior to arrival she accidentally fell and struck her shoulder on a metal trunk. She has no other injuries or complaints at this time apart from left shoulder pain. MD complaint: injury to: left and shoulder Onset (ago): hour(s) Other Extremity Injury: Left: shoulder Other injuries: none Place: home Severity: severe Relieving factors: immobilization Exacerbating factors: movement of extremity Context: fall and direct blow Associated symptoms: Reports no associated symptoms; Denies neck pain or weakness in extremities Related Data Previous Rx's Medication Instructions Recorded aspirin 81 mg tablet,delayed 81 mg PO DAILY #30 tabs 01/08/24 release (Adult Low Dose Aspirin) clopidogrel 75 mg tablet (Plavix) 75 mg PO DAILY #30 tabs 01/08/24 amlodipine 10 mg tablet 10 mg PO DAILY #90 tabs 03/13/24 atorvastatin 40 mg tablet 40 mg PO 2100 #90 tabs 03/13/24 lisinopril 40 mg tablet 40 mg PO DAILY #90 tabs 03/13/24 hydrocodone 5 mg-acetaminophen 325 1 tab PO Q6H PRN pain #14 tabs 06/01/24 mg tablet Allergies Allergy/AdvReac Type Severity Reaction Status Date / Time No Known Allergies Allergy Verified 06/01/24 15:58 Review of Systems Eyes: Denies: change in vision, blurry vision, photophobia, eye discharge, floaters or seeing flashes ENMT: Denies: throat pain, odynophagia, ear or mastoid pain, ear discharge, nasal discharge, epistaxis or sinus pain Card: Denies: chest pain, palpitations, lightheadedness, syncope or pre- syncope Resp: Denies: dyspnea or pain on inspiration GI: Denies: abdominal pain : Denies: flank pain or hematuria Musc: Reports: joint pain (L shoulder pain) and limited range of motion; Denies: neck pain, back pain, extremity pain or extremity swelling Neuro: Denies: headache(s), numbness in extremities, weakness in extremities, sensory changes or dizziness PFSH ED PFSH: Medical History Lacunar infarction Surgical History No pertinent past surgical history Family History Grandmother Arrhythmia CAD (coronary artery disease) Congestive heart failure (CHF) Diabetes mellitus, type 2 Heart disease Hypertension TIA (transient ischemic attack) Mother Arrhythmia CAD (coronary artery disease) Carotid artery disease Congestive heart failure (CHF) Heart disease Hypertension Father Arrhythmia CAD (coronary artery disease) Congestive heart failure (CHF) Heart disease Hypertension Sudden cardiac Grandfather Sudden cardiac Daughter TIA (transient ischemic attack) Other COPD (chronic obstructive pulmonary disease) Cancer Diabetes Stroke Denies family history of Anemia Aneurysm Atrial fibrillation Pulmonary embolism Cardiomyopathy Social History Smoking and tobacco/nicotine status: former use of tobacco/nicotine Alcohol intake: never Substance/Drug Use: never Physical Exam Const: COMMON NORMALS: no acute distress, average body habitus, patient oriented x3, no limitations, healthy appearing, alert and well nourished GENERAL APPEARANCE: cooperative ORIENTATION/CONSCIOUSNESS: Yes awake, Yes oriented to person, Yes oriented to place and Yes oriented to time HENMT: COMMON NORMALS: normocephalic, atraumatic and TM's normal bilaterally HEAD & SCALP: normal to inspection, normocephalic and atraumatic; no Sol's sign, no hematoma and no raccoon eyes FACE & SINUS: normal facial exam TYMPANIC MEMBRANE: TM's normal bilaterally MOUTH: other (no intraoral injuries noted) Eye: COMMON NORMALS: Equal, round and reactive pupils present and EOMs intact bilaterally GENERAL EYE: appearance normal, both eyes and all related structures and normal light reflex PUPIL: Yes Equal, round and reactive pupils present DIRECT OPHTHALMOSCOPY: Yes normal light reflex Neck/C-Spine: COMMON NORMALS: full ROM GENERAL: Yes normal visual inspection CERVICAL SPINE: Yes cervical ROM normal, No pain with cervical ROM, No Cervical spine tenderness, No step off deformity and No Paracervical muscle tenderness Chest: COMMONS NORMALS: normal inspection of the chest and normal palpation of entire chest wall Resp: COMMON NORMALS: normal respiratory effort and clear to auscultation bilaterally AUSCULTATION: clear to auscultation bilaterally Cardio: COMMON NORMALS: regular rate and regular rhythm RATE: regular rate RHYTHM: regular rhythm GI: COMMON NORMALS: Normal to inspection, nondistended, normoactive bowel sounds present, Soft to palpation, non-tender, No hepatosplenomegaly present and no masses INSPECTION: Yes normal to inspection and No abdominal wall ecchymo sis AUSCULTATION: Yes normoactive bowel sounds PALPATION: Yes Soft to palpation and Yes No hepatosplenomegaly present Back/Pelvis: COMMON NORMALS: thoracic and lumbar spine normal to inspection, no thoracic nor lumbar tenderness and thoraco-lumbar ROM normal Extremity: GENERAL: Yes normal exam except as noted LEFT UPPER EXTREMITY: Yes shoulder joint (TTP proximal shoulder) Left shoulder joint: Yes ROM (limited secondary to pain) and Yes neurovascular exam (normal) Neuro: BERNARD COMA SCALE: document GCS findings Bernard coma scale eye opening: Spontaneous Bernard coma scale verbal response: Orientated Bernard coma scale motor response: Obey commands Knox coma scale total score: 15 COMMON NORMALS: patient oriented x3, CN's II-XII intact bilaterally, moves all extremities, no focal motor deficits, no sensory deficits noted and gait normal SENSORIUM/ORIENTATION: Yes alert, Yes oriented to person, Yes oriented to place and Yes oriented to time SPEECH: speech normal GAIT: Yes Normal gait present Skin: COMMON NORMALS: no rashes or lesions noted GENERAL SKIN EXAM: no rashes or lesions noted TRAUMA: no lacerations or abrasions Course Vital Signs: Vital signs: Vital Signs Temperature 98.2 F 06/01/24 15:53 Pulse Rate 112 H 06/01/24 15:53 Respiratory Rate 20 H 06/01/24 15:53 Blood Pressure 131/84 06/01/24 15:53 Pulse Oximetry 98 06/01/24 15:53 Oxygen Delivery Me thod Room Air 06/01/24 15:53 MDM - Extremity Injury (Upper) Medical Decision Making XR left shoulder showing a greater tuberosity fracture. She will be placed in a sling and will have her follow-up with orthopedics. Medical Records I reviewed the patient's medical records. XR interpretation done by ED provider, pending radiology final review Discharge Plan Discharge Patient Disposition: Home Clinical Impression: Closed fracture of greater tuberosity of humerus Qualifiers: Encounter type: initial encounter Fracture alignment: nondisplaced Laterality: left Qualified Code(s): S42.255A - Nondisplaced fracture of greater tuberosity of left humerus, initial encounter for closed fracture Condition: Stable Prescriptions: New hydrocodone-acetaminophen 5-325 mg tablet 1 tab PO Q6H PRN (Reason: pain) Qty: 14 0RF No Action aspirin [Adult Low Dose Aspirin] 81 mg tablet,delayed release (DR/EC) 81 mg PO DAILY Qty: 30 5RF clopidogrel [Plavix] 75 mg tablet 75 mg PO DAILY Qty: 30 5RF Rx Instructions: Take with low dose aspirin (81 mg) amlodipine 10 mg tablet 10 mg PO DAILY Qty: 90 0RF Rx Instructions: Take 1 tablet by mouth once daily atorvastatin 40 mg tablet 40 mg PO 2100 Qty: 90 0RF lisinopril 40 mg tablet 40 mg PO DAILY Qty: 90 0RF Discharge Orders: Discharge ED (Routine); Ordered 06/01/24 Ordered By: Elsie Sylvester Referrals: Norma Harris FNP [Primary Care Provider] - Patient Instructions: Fractures - Humerus, Opioid Safety, Pain Management Activity Restrictions/Additional Instructions: You need to stay in your sling at all times apart from showering or bathing. You may use your pain medications as needed for significant discomfort. As we discussed, case management should reach out to you early this week to set you up with your follow-up orthopedic appointment. Coding Level of Care Code ED [employer] for López Kelley
[2024-06-01 16:51] VITALS: RESP 18; O2SAT 98
[2024-06-01] MEDS: ondansetron 2 mg/ML SDV 2 mL 4 MG IM (16:51)
[2024-06-01] MEDS: morphine 4 mg/mL SDV 1 mL IM (16:51)
[2024-06-01 17:00] VITALS: BP 137/71; PULSE 86; RESP 17; O2SAT 98
[2024-06-01 17:31] VITALS: BP 122/73; PULSE 82; RESP 17; O2SAT 97
--- NOTE | 2024-06-03 08:42 | DCPLANNER ---
messaged ortho for er f/u
== END 2024-06-01 17:31 | disposition home or self-care (01) ==
PROVIDERS: Emergency Provider Physician Assistant; PCP Nurse Practitioner Family
DX: S42.255A Nondisplaced fracture of greater tuberosity of left humerus, initial encounter for closed fracture (principal); Z79.02 Long term (current) use of antithrombotics/antiplatelets; Z79.82 Long term (current) use of aspirin; Z87.891 Personal history of nicotine dependence; Z86.73 Personal history of transient ischemic attack (TIA), and cerebral infarction without residual deficits; W18.39XA Other fall on same level, initial encounter
CPT/HCPCS: 73030; 96372; 99284; J2270; J2405

== ENCOUNTER → 2024-06-06 13:51 | Outpatient (BNVA) | payer MEDICAID, SELFPAY | PROVIDERS: PCP Nurse Practitioner Family; Visit Provider Physician Assistant | DX: M25.512 Pain in left shoulder (principal); S42.255A Nondisplaced fracture of greater tuberosity of left humerus, initial encounter for closed fracture; S42.202A Unspecified fracture of upper end of left humerus, initial encounter for closed fracture; W19.XXXA Unspecified fall, initial encounter | CPT/HCPCS: 73030 ==

== ENCOUNTER → 2024-06-11 10:59 | Outpatient (BNVA) | payer MEDICAID, SELFPAY | PROVIDERS: PCP Nurse Practitioner Family; Visit Provider Student in an Organized Health Care Education/Training Program | DX: M25.512 Pain in left shoulder (principal) | CPT/HCPCS: 73030 ==

== ENCOUNTER → 2024-06-20 10:15 | Outpatient (BNVA) | payer MEDICAID, SELFPAY | PROVIDERS: PCP Nurse Practitioner Family; Visit Provider Nurse Practitioner Family | DX: I10 Essential (primary) hypertension (principal); Z79.899 Other long term (current) drug therapy; E78.2 Mixed hyperlipidemia | CPT/HCPCS: 80053; 80061; 85025 ==

== ENCOUNTER → 2024-06-27 13:26 | Outpatient (BNVA) | payer MEDICAID, SELFPAY | PROVIDERS: PCP Nurse Practitioner Family; Visit Provider Student in an Organized Health Care Education/Training Program | DX: S42.202A Unspecified fracture of upper end of left humerus, initial encounter for closed fracture (principal); X58.XXXA Exposure to other specified factors, initial encounter | CPT/HCPCS: 73060 ==

== ENCOUNTER → 2024-07-18 13:17 | Outpatient (BNVA) | payer MEDICAID, SELFPAY | PROVIDERS: PCP Nurse Practitioner Family; Visit Provider Physician Assistant | DX: S42.202A Unspecified fracture of upper end of left humerus, initial encounter for closed fracture; X58.XXXA Exposure to other specified factors, initial encounter | CPT/HCPCS: 73030 ==

== ENCOUNTER → 2024-08-02 11:06 | Outpatient (BNVA) | payer MEDICAID, SELFPAY | PROVIDERS: PCP Nurse Practitioner Family; Visit Provider Physician Assistant | DX: S42.202A Unspecified fracture of upper end of left humerus, initial encounter for closed fracture; X58.XXXA Exposure to other specified factors, initial encounter | CPT/HCPCS: 73030 ==

== ENCOUNTER 2024-08-26 08:51 | Outpatient (CLI) | payer MEDICAID, SELFPAY ==
--- NOTE | 2024-08-26 09:00 | CT_ITS ---
WS: [id number] LDCT LUNG CANCER SCREENING TECHNIQUE: Noncontrast CT of the chest with coronal and sagittal reformatted images. CLINICAL INFORMATION: F17.200 - Nicotine dependence, unspecified, uncomplicated COMPARISON: None. DLP: 94.50 mGy.cm DIvol: Mean CTDIvol: 2.40 (mGy) All CT scans at [facility] use at least one of these dose optimization techniques: automat ed exposure control; mA and/or kV adjustment per patient size (includes targeted exams where dose is matched to clinical indication); or iterative reconstruction. FINDINGS: A few tiny scattered micronodules in the LEFT upper and lower lobes. Subsegmental atelectas is RIGHT middle lobe. Subsegmental atelectasis RIGHT lower lobe. LEFT upper lobe nodule measuring 3.2 mm. Elevation RIGHT hemidiaphragm. Normal caliber thoracic aorta. Calcification. No mediastinal or hilar lymphadenopathy. No axillary lymphadenopathy. Adrenal glands are normal. Splenic artery calcification. PFO repair device. Thoracic curve. Mild thor acic kyphosis. Small LEFT adrenal nodule likely adenoma. Small esophageal hernia. CT/CT lung screening [id number] IMPRESSION: LUNG-RADS: 2-Benign Appearance or Behavior FOLLOW UP: 12 Month: Continue annual screening with LDCT
== END 2024-08-26 08:52 | disposition home or self-care (01) ==
LOC: RAD 08:52
PROVIDERS: PCP Nurse Practitioner Family; Visit Provider Nurse Practitioner Family
DX: Z12.2 Encounter for screening for malignant neoplasm of respiratory organs (principal); F17.200 Nicotine dependence, unspecified, uncomplicated; R91.8 Other nonspecific abnormal finding of lung field; J98.11 Atelectasis; D73.89 Other diseases of spleen; D35.02 Benign neoplasm of left adrenal gland
CPT/HCPCS: 71271

== ENCOUNTER 2024-09-25 12:28 | Outpatient (CLI) | payer MEDICAID, SELFPAY ==
--- NOTE | 2024-09-25 12:30 | MM_ITS ---
WS: [id number] BILATERAL 3D TOMOSYNTHESIS DIGITAL SCREENING MAMMOGRAM WITH CAD CLINICAL INFORMATION: Z12.39 - Encounter for other screening for malignant neop... HISTORY: Screening mammogram. No current complaints. COMPARISON: 2022 TECHNIQUE: Bilateral CC and MLO views. FINDINGS: Fatty-replaced breasts bilaterally. No suspicious focal mass, asymmetry, calcifications, or digital solution architect ural distortion. No evidence of malignancy. MM/MM scr tomosynthesis [id number] IMPRESSION: DENSITY: The breasts are almost entirely fatty. BI-RADS: 1 - Negative. FOLLOW UP: 1 Year Follow-up Recommend return to annual screening mammography.
--- NOTE | 2024-09-25 13:00 | XR_ITS ---
WS: [id number] DEXA (DUAL ENERGY X-RAY ABSORPTIOMETRY) Bone mineral density was performed using a Volofy machine. HISTORY: M81.0 - Age-related osteoporosis without current patholog... COMPARISON: None available. Lumbar spine BMD (L1-L4): 1.176 g/cm2 T score: 0.0 Z score: 0.7 Total hip BMD: Left: 0.878 g/cm2. T score: -1.0 Z score: -0.5 Right: 0.943 g/cm2. T score: -0.5 Z score: 0.0 10 year probability of a major osteoporotic fracture is 16.9%. XR/XR DEXA axial skeleton* [id number] IMPRESSION: NORMAL BONE MINERAL DENSITY based upon the WHO classification for females.
== END 2024-09-25 12:29 | disposition home or self-care (01) ==
LOC: RAD 12:28
PROVIDERS: PCP Nurse Practitioner Family; Visit Provider Nurse Practitioner Family
DX: Z12.31 Encounter for screening mammogram for malignant neoplasm of breast (principal); M81.0 Age-related osteoporosis without current pathological fracture; R92.313 Mammographic fatty tissue density, bilateral breasts
CPT/HCPCS: 77063; 77067; 77080

== ENCOUNTER → 2024-09-27 11:12 | Outpatient (BNVA) | payer MEDICAID, SELFPAY | PROVIDERS: PCP Nurse Practitioner Family; Visit Provider Physician Assistant | DX: S42.202D Unspecified fracture of upper end of left humerus, subsequent encounter for fracture with routine healing; X58.XXXD Exposure to other specified factors, subsequent encounter | CPT/HCPCS: 73030 ==

== ENCOUNTER 2025-01-24 07:36 | Outpatient (CLI) | payer MEDICAID, SELFPAY ==
--- NOTE | 2025-01-24 07:45 | USCV_ITS ---
Alecia Douglas Age: 59 Gender: F : 1965 Exam Date: 01/24/2025 08:10 Ordering Phys: Arely Coats MD ([email or web address]) Technologist: Tom Osborne Exam Location: [facility] – [place] Indication: pfo/ mv replacement BP: 129 / 80 HR: 71 Rhythm: Sinus Technical Quality: Adequate MEASUREMENTS (Male / Female) Normal Values 2D ECHO LV Diastolic Diameter PLAX 4.7 cm 4.2 - 5.9 / 3.9 - 5.3 cm IVS Diastolic Thickness 1.2 cm 0.6 - 1.0 / 0.6 - 0.9 cm IVS Systolic Thickness 1.6 cm LVPW Diastolic Thickness 1.7 cm 0.6 - 1.0 / 0.6 - 0.9 cm LVPW Systolic Thickness 2.3 cm LVOT Diameter 2.0 cm LV Ejection Fraction 2D Teich 72.0 % LV Ejection Fraction MOD 4C 77.4 % LV Ejection Fraction MOD 2C 65.8 % LV Ejection Fraction 2C AL 64.7 % LA Diameter 3.4 cm RA Systolic Volume 4C AL 13.5 ml RA Systolic Volume 4C MOD 10.8 ml LA Sys Volume AL 23.0 cm cubed LA Sys Volume Index AL 11.9 cm cubed/m squared Aorta at Sinotubular Diameter 2.3 cm M-MODE LA Ao Ratio MM 1.4 AV Cusp Separation MM 1.7 cm DOPPLER AV Peak Velocity 168.0 cm/s LVOT Peak Velocity 107.0 cm/s AV Area Cont Eq vti 2.1 cm squared AV Area Cont Eq pk 2.1 cm squared MV Peak Velocity 110.0 cm/s MV Area PHT 4.1 cm squared Mitral E to A Ratio 0.8 TV Peak Velocity 176.3 cm/s TR Peak Velocity 179.0 cm/s TR Peak Gradient 12.8 mmHg TR Mean Velocity 149.0 cm/s TR Mean Gradient 9.3 mmHg TR Velocity Time Integral 59.4 cm Right Atrial Pressure 8.0 mmHg Pulmonary Artery Systolic Pressu 20.8 mmHg PV Peak Velocity 93.7 cm/s RV Ejection Time 0.3 s FINDINGS Left Ventricle Mild concentric left ventricle hypertrophy. Normal left ventricular systolic function. Estimated LVEF 65%. Right Ventricle Normal right ventricular size and systolic function. Right Atrium Normal right atrial size. Left Atrium Normal left atrial size. Mitral Valve Structurally normal mitral valve. Aortic Valve Structurally normal trileaflet aortic valve. Tricuspid Valve Grossly normal tricuspid valve Pulmonic Valve Structurally normal pulmonic valve. Pericardium No pericardial effusion. Aorta Normal size aortic root and proximal ascending aorta. IVC Normal inferior vena cava. CONCLUSIONS Mild concentric LVH. Normal left ventricular function. Estimated LVEF normal 65%. No significant valvular abnormality noted. Normal right heart and pulmonary pressures. There is no apparent PFO noted on Doppler examination during this study. Of note, a small PFO had been noted during during transesophageal echo in 2023. Ria Beard MD (Electronically Signed) Final Date: 24 Jan 2025 10:01 S
== END 2025-01-24 07:37 | disposition home or self-care (01) ==
PROVIDERS: PCP Nurse Practitioner Family; Visit Provider Internal Medicine Cardiovascular Disease
DX: R06.09 Other forms of dyspnea (principal); I51.7 Cardiomegaly
CPT/HCPCS: 93306

== ENCOUNTER → 2025-03-05 10:37 | Outpatient (BNVA) | payer MEDICAID, SELFPAY | PROVIDERS: PCP Nurse Practitioner Family; Visit Provider Nurse Practitioner Family | DX: I10 Essential (primary) hypertension (principal); R53.83 Other fatigue | CPT/HCPCS: 80053; 80061; 84443; 85025 ==

== ENCOUNTER → 2025-04-01 10:51 | Outpatient (BNVA) | payer MEDICAID, SELFPAY | PROVIDERS: PCP Nurse Practitioner Family; Visit Provider Nurse Practitioner Family | DX: D72.829 Elevated white blood cell count, unspecified (principal) | CPT/HCPCS: 85025 ==